=== PATIENT | female | born 1960 | race African-American/Black ===

== ENCOUNTER 2025-09-06 12:35 | Outpatient (CLI) | payer OTHER ==
[2025-09-06 16:19] LABS: Anion Gap 12 mmol/L (10-20); BUN (Urea Nitrogen) 8 mg/dL (9.8-20.1); Calc. Creatinine Clearance 0 mL/min (70-130); Calcium 8.9 mg/dL (7.8-10.44); Carbon Dioxide 26 mmol/L (23-31); Chloride 106 mmol/L (98-107); Glucose 134 mg/dL (80-115); Potassium 4.3 mmol/L (3.5-5.1); Sodium 140 mmol/L (136-145)
== END 2025-09-06 12:36 | disposition home or self-care (01) ==
LOC: CSHLAB 12:35
PROVIDERS: ATTEND Podiatrist Foot & Ankle Surgery
DX: Z01.818 Encounter for other preprocedural examination (principal); M76.61 Achilles tendinitis, right leg
CPT/HCPCS: 80048; 93005; 93010